=== PATIENT | male | born 1970 | race Hispanic/Latino ===

== ENCOUNTER 2024-09-05 13:57 | Emergency (ER) | payer BC ==
[~2024-09-05] VITALS: Ht 167.6 cm; Wt 99.8 kg
[2024-09-05 14:16] VITALS: TEMP 97.7
[2024-09-05] MEDS: KETOROLAC TROMETHAMINE 30 MG/ML VIAL IM STA (15:02)
[2024-09-05] MEDS: ORPHENADRINE CITRATE 30 MG/ML VIAL IM ONE (15:03)
[2024-09-05] MEDS: HYDROCODONE/APAP 7.5MG-325MG 1 EA TAB PO ONE (15:03)
[2024-09-05 15:19] VITALS: PULSE 59; RESP 18
[2024-09-05] MEDS ORDERED: ULTRAM 50MG50 MG PO (15:59)
[2024-09-05] MEDS ORDERED: MEDROL4 M2 PO (15:59)
[2024-09-05 16:16] VITALS: BP 154/90; PULSE 68; RESP 18; O2SAT 98
== END 2024-09-05 16:18 | disposition home or self-care (01) ==
LOC: ER 14:28
DX: M54.31 Sciatica, right side (principal)
CPT/HCPCS: 99283; J1885; J2360